=== PATIENT | male | born 1965 | race Caucasian/White ===

== ENCOUNTER 2021-05-18 13:36 | Emergency (ER) | payer OTHER, SELFPAY ==
[2021-05-18 13:57] VITALS: PULSE 60; RESP 18; TEMP 36.9; O2SAT 98
--- NOTE | 2021-05-18 14:06 | DI.RAD.S_ITS ---
PROCEDURE: XR FINGER RT MIN 2V INDICATIONS: crush injury TECHNIQUE: AP hand, 2 views of the 4th finger(s) acquired. COMPARISON: None. FINDINGS: Bones: Cortical irregularity involving 4th distal phalangeal tuft is seen consistent with a nondisplaced fracture. No other fracture or dislocation. No suspicious bony lesions. Soft tissues: Significant soft tissue swelling surrounding distal portion of 4th finger is seen. No suspicious soft tissue calcifications. IMPRESSION: Nondisplaced 4th distal phalangeal 4th tuft fracture. Distal 4th finger soft tissue swelling. Dictated by: Malachi Helm M.D. on 05/18/2021 at 14:34 Approved by: Malahci Helm M.D. on 05/18/2021 at 14:34
[2021-05-18] MEDS: HYDROCODONE/ACET 5/325 TABLET 1 TAB PO ×2 (14:20→19:40)
--- NOTE | 2021-05-18 16:05 | ED.UPPEXIN ---
HPI - Extremity Injury (Upper) <JESUS Soto - Last Filed: 05/18/21 20:57> General Chief Complaint: Extremity Injury, Upper Stated Complaint: Chopped tip of finger off right hand Time Seen by Provider: 05/18/21 16:05 Source: patient Mode of arrival: Ambulatory Related Data Previous Rx's Medication Instructions Recorded doxycycline hyclate 100 mg tablet 100 mg PO BID #20 tab 05/18/21 hydrocodone 5 mg-acetaminophen 325 1 tab PO Q4-6H PRN #20 tab 05/18/21 mg tablet Allergies Allergy/AdvReac Type Severity Reaction Status Date / Time No Known Drug Allergies Allergy Verified 05/18/21 17:25 <Tacho Oakes DO - Last Filed: 05/18/21 19:50> History of Present Illness HPI narrative: 55M without chronic medical problems presents with an accidental injury to hit right 4th finger in a work related injury just prior to arrival. He set a 3000lb pallet on his finger and now has pain and bleeding. His tetanus will need to be updated. He is otherwise well and free of complaint. <Tacho Oakes DO - Last Filed: 05/18/21 19:50> Review of Systems Narrative: GENERAL: Denies chills, fatigue, malaise, fever, sweats. HEENT: Denies sinus pain, ear pain, sore throat, difficulty swallowing, dizziness. RESPIRATORY: Denies dyspnea, cough, wheezing, hemoptysis, sputum. CARDIOVASCULAR: Denies chest pain, palpitations, orthopnea, edema, GASTROINTESTINAL: Denies nausea, vomiting, abdominal pain, diarrhea, constipation, melena. : Denies dysuria, frequency, incontinence, hematuria, urinary retention. MUSCULOSKELETAL: see HPI SKIN: Denies rash, skin lesions, or other NEUROLOGIC: Denies weakness, headache, numbness, change in speech, confusion, seizures, incoordination. PSYCHIATRIC: No concerning psychosocial issues. 12 point review of systems is negative except for those stated above Exam <JESUS Soto - Last Filed: 05/18/21 20:57> Initial Vital Signs Initial Vital Signs: Vital Signs Temperature 98.4 F 05/18/21 13:57 Pulse Rate 60 05/18/21 13:57 Respiratory Rate 18 05/18/21 13:57 Pulse Oximetry 98 05/18/21 13:57 <Tacho Oakes DO - Last Filed: 05/18/21 19:50> Narrative Exam Narrative: GEN: AOx3 and in mild distress EYES: Pupils are equal, round, and reactive to light and accommodation. Extraoccular muscles are intact bilaterally. There is no subconjunctival hemorrhage or exudate. CHEST: Lungs are clear to auscultation bilaterally and free of wheezes, rales, or rhonchi. Heart rate is regular rhythm, there are no murmurs, clicks, rubs, or gallops. There is no chest wall tenderness. ABD: Abdomen is soft and nontender. There is no guarding or rebound. Bowel sounds are normal in all 4 quadrants. There is no mass or organomegaly. EXT: Complex crushing injury with active bleeding. Large flap laceration on volar surface of right fourth finger crossing the DIP. Nail in place, no obvious tendon involvement. SKIN: Warm, pink, and dry. No erythema or rash Initial Vital Signs Initial Vital Signs: Vital Signs Temperature 98.4 F 05/18/21 13:57 Pulse Rate 60 05/18/21 13:57 Respiratory Rate 18 05/18/21 13:57 Pulse Oximetry 98 05/18/21 13:57 <Tacho Oakes DO - Last Filed: 05/18/21 19:50> Laceration Repair Laceration 1: Site: hand Side (If applicable): right Size (cm): 3 Description: flap Depth: involves muscle layer Pre-repair: wound explored Skin layer closed with: nylon Size (cm): 4-0 Number of sutures: 9 Technique: simple, interrupted Nerve Block Nerve Block 1: Time out performed: Yes Local Anesthetic: bupivacaine 0.25% Amount of anesthesia used (mL): 6 Side: right Nerve Blocks: digital Procedure Successful: Yes Patient Tolerated Procedure: Well Complications: none Orthopedic Splinting/Casting Injury #1: Side: right Upper Extremity Injury Location: finger Upper Extremity Immobilizer: finger (other) Post splinting neuro exam: intact Post splinting vascular exam: intact Placed by: Nursing Course <JESUS Soto - Last Filed: 05/18/21 20:57> Orders Ordered: ED Orders 05/18/21 14:06 XR finger RT min 2V Stat Discontinued Medications Hydrocodone Bitart/Acetaminophen (Hydrocodone/Acet 5/325 Tablet) 1 tab PO NOW ONE Stop: 05/18/21 14:03 Last Admin: 05/18/21 14:20 Dose: 1 tab Documented by: BRODIE Hydrocodone Bitart/Acetaminophen (Hydrocodone/Acet 5/325 Tablet) 1 tab PO NOW ONE Stop: 05/18/21 19:31 Last Admin: 05/18/21 19:40 Dose: 1 tab Documented by: SUYAPA Bacitracin (Bacitracin Oint 0.9 Gm Pckt) 2 applic TOP NOW ONE Stop: 05/18/21 19:36 Last Admin: 05/18/21 19:40 Dose: 2 applic Documented by: SUYAPA Bupivacaine HCl (Bupivacaine 0.25% (Pf) Vial) 5 ml SUBCUT NOW ONE Stop: 05/18/21 17:43 Last Admin: 05/18/21 17:51 Dose: 5 ml Documented by: SUYAPA Diphtheria/Tetanus/Acell Pertussis (Tet,Diph,Pertuss(Acell),Vac/Pf 0.5 Ml Syringe) 0.5 ml IM .ONCE ONE Stop: 05/18/21 15:36 Last Admin: 05/18/21 17:36 Dose: 0.5 ml Documented by: JOSE Vital Signs Vital signs: Vital Signs - 8 hr 05/18/21 13:57 05/18/21 19:30 05/18/21 19:57 Temperature 98.4 F Pulse Rate 60 88 Pulse Rate [Right Radial] 88 Respiratory Rate 18 18 Pulse Oximetry 98 99 <Tacho Oakes, DO - Last Filed: 05/18/21 19:50> Orders Ordered: ED Orders 05/18/21 14:06 XR finger RT min 2V Stat Discontinued Medications Hydrocodone Bitart/Acetaminophen (Hydrocodone/Acet 5/325 Tablet) 1 tab PO NOW ONE Stop: 05/18/21 14:03 Last Admin: 05/18/21 14:20 Dose: 1 tab Documented by: BRODIE Hydrocodone Bitart/Acetaminophen (Hydrocodone/Acet 5/325 Tablet) 1 tab PO NOW ONE Stop: 05/18/21 19:31 Last Admin: 05/18/21 19:40 Dose: 1 tab Documented by: SUYAPA Bacitracin (Bacitracin Oint 0.9 Gm Pckt) 2 applic TOP NOW ONE Stop: 05/18/21 19:36 Last Admin: 05/18/21 19:40 Dose: 2 applic Documented by: SUYAPA Bupivacaine HCl (Bupivacaine 0.25% (Pf) Vial) 5 ml SUBCUT NOW ONE Stop: 05/18/21 17:43 Last Admin: 05/18/21 17:51 Dose: 5 ml Documented by: SUYAPA Diphtheria/Tetanus/Acell Pertussis (Tet,Diph,Pertuss(Acell),Vac/Pf 0.5 Ml Syringe) 0.5 ml IM .ONCE ONE Stop: 05/18/21 15:36 Last Admin: 05/18/21 17:36 Dose: 0.5 ml Documented by: JOSE Vital Signs Vital signs: Vital Signs - 8 hr 05/18/21 13:57 05/18/21 19:30 05/18/21 19:57 Temperature 98.4 F Pulse Rate 60 88 Pulse Rate [Right Radial] 88 Respiratory Rate 18 18 Pulse Oximetry 98 99 MDM - Extremity Injury (Upper) <Ave Hoffman, [facility] - Last Filed: 05/18/21 20:57> Imaging Data Extremity x-ray #1: Radiologist's Impression: PROCEDURE:? XR FINGER RT MIN 2V ? INDICATIONS:? crush injury ? TECHNIQUE:? AP hand, 2 views of the 4th finger(s) acquired.? ? COMPARISON:? None. ? FINDINGS:? ? Bones:? Cortical irregularity involving 4th distal phalangeal tuft is seen consistent with a nondisplaced fracture.? No other fracture or dislocation.? No suspicious bony lesions.? ? Soft tissues:? Significant soft tissue swelling surrounding distal portion of 4th finger is seen.? No suspicious soft tissue calcifications.? ? IMPRESSION:? Nondisplaced 4th distal phalangeal 4th tuft fracture.? Distal 4th finger soft tissue swelling. ? ? Dictated by: Malachi Helm M.D. on 05/18/2021 at 14:34 ? ? Approved by: Malachi Helm M.D. on 05/18/2021 at 14:34 ? Discharge Plan Departure Patient Disposition: Home Clinical Impression: Open finger fracture Instructions: DI for Finger Fracture, DI for Laceration Repair -- Finger Activity Restrictions/Additional Instructions: *You have been diagnosed with [complex laceration of right 4th finger with open fracture. As we discussed this will need close follow-up with your primary care provider and they may refer you to wound care or even Orthopedics. *What to do: *Please continue to take your regular medications as directed. [ x] New medication prescriptions sent to your pharmacy: [ [facility]] [ ] New medication written as a paper prescription [ ] No new medications given *Please follow up with your primary care provider in 2-3 days, call for an appointment. Let them know you were seen in the Emergency Department and that we ask that you be seen in follow up. We will electronically transmit a record of today's note if your PCP is in our system *If you do not have a primary care provider please contact the [facility] Resource line at [phone]. They will ask some questions about your medical history and help get you set up with a doctor in the community. *Return to Emergency Department if you should have any new, worsening or concerning symptoms, such as [fever greater than 101 F, shaking chills, worsening pain, persistent vomiting or other bothersome symptoms] Prescriptions: New hydrocodone-acetaminophen 5-325 mg tablet 1 tab PO Q4-6H PRN (Reason: pain) Qty: 20 0RF doxycycline hyclate 100 mg tablet 100 mg PO BID Qty: 20 0RF Stand Alone Forms: Work Release Note
[2021-05-18] MEDS: TET,DIPH,PERTUSS(ACELL),VAC/PF 0.5 ML SYRINGE IM (17:36)
[2021-05-18] MEDS: BUPIVACAINE 0.25% (PF) VIAL 5 ML SUBCUT (17:51)
[2021-05-18 19:30] VITALS: PULSE 88
[2021-05-18] MEDS: BACITRACIN OINT 0.9 GM PCKT 2 APPLIC TOP (19:40)
[2021-05-18 19:57] VITALS: PULSE 88; RESP 18; O2SAT 99
== END 2021-05-18 19:58 | disposition home or self-care (01) ==
PROVIDERS: Emergency Provider Emergency Medicine
DX: S62.664B Nondisplaced fracture of distal phalanx of right ring finger, initial encounter for open fracture (principal); W23.0XXA Caught, crushed, jammed, or pinched between moving objects, initial encounter; Y99.0 Civilian activity done for income or pay; Z23 Encounter for immunization
CPT/HCPCS: 13132; 64450; 73140; 90471; 99284; 90715